=== PATIENT | male | born 1985 | race Two or more races ===

== ENCOUNTER 2022-06-15 00:29 | Emergency (ER) | payer BC ==
[2022-06-15 01:00] VITALS: BP 130/72; PULSE 77
[2022-06-15] MEDS ORDERED: Tetracaine HCl/PF 0.5% 4 ML Bottle EYEBOTH ONE (01:02)
[2022-06-15] MEDS ORDERED: Fluorescein 1 MG Ophth Strip EYEBOTH ONE (01:03)
[2022-06-15] MEDS ORDERED: Erythromycin Base 0.5% Ophth Oint 1 GM Tube EYEBOTH ONE (01:33)
[2022-06-15] MEDS ORDERED: Acetaminophen/HYDROcodone 325-5 MG Tab PO ONE (01:34)
[2022-06-15] MEDS ORDERED: Ibuprofen 600 MG Tab PO ONE (01:34)
== END 2022-06-15 02:06 | disposition home or self-care (01) ==
LOC: MW.ED 00:29
DX: S05.01XA Injury of conjunctiva and corneal abrasion without foreign body, right eye, initial encounter (principal); S05.02XA Injury of conjunctiva and corneal abrasion without foreign body, left eye, initial encounter; W22.8XXA Striking against or struck by other objects, initial encounter; Y92.89 Other specified places as the place of occurrence of the external cause; Y99.0 Civilian activity done for income or pay
CPT/HCPCS: 99283; A9270